=== PATIENT | male | born 1970 | race Two or more races ===

== ENCOUNTER 2016-05-19 16:28 | Emergency (ER) | payer BC, OTHER ==
[~2016-05-19] VITALS: Ht 167.6 cm; Wt 85.7 kg
[2016-05-19 16:43] VITALS: BP 142/78
== END 2016-05-19 20:03 | disposition home or self-care (01) ==
LOC: ER 16:31
DX: G44.009 Cluster headache syndrome, unspecified, not intractable (principal)
CPT/HCPCS: 70450

== ENCOUNTER 2017-08-03 17:53 | Emergency (ER) | payer SELFPAY ==
[~2017-08-03] VITALS: Ht 170.2 cm; Wt 90.7 kg
[2017-08-03 17:59] VITALS: BP 141/96
[2017-08-03] MEDS ORDERED: HYDROcodone-ACET 10/325MG TAB PO ONE (23:30)
[2017-08-03] MEDS ORDERED: IBUPROFEN 800 MG TAB PO ONE ×2 (23:30→23:31)
[2017-08-03] MEDS ORDERED: HYDROcodone-ACET 10/325MG TAB ONE (23:31)
== END 2017-08-03 23:43 | disposition home or self-care (01) ==
LOC: ER 18:00
DX: S92.355A Nondisplaced fracture of fifth metatarsal bone, left foot, initial encounter for closed fracture (principal); W01.0XXA Fall on same level from slipping, tripping and stumbling without subsequent striking against object, initial encounter; Y93.89 Activity, other specified; Y92.89 Other specified places as the place of occurrence of the external cause; Y99.8 Other external cause status
CPT/HCPCS: 73630

== ENCOUNTER 2021-07-14 02:39 | Emergency (ER) | payer SELFPAY ==
[~2021-07-14] VITALS: Ht 167.6 cm; Wt 90.7 kg
[2021-07-14] MEDS ORDERED: SODIUM CHLORIDE 0.9% 1,000 ML IV ONE ×2 (03:00→08:00)
[2021-07-14] MEDS ORDERED: KETOROLAC TROMETH 30 MG/ML 1ML VIAL IV ONE (03:00)
[2021-07-14 04:42] LABS: Urine Bacteria NONE SEEN /hpf (None Seen); Urine Blood Negative /uL (Negative); Urine WBC 2 /hpf (0 - 3)
[2021-07-14 04:49] LABS: Basophils # (auto) 0 10 ^3/uL (0-0.2); Basophils % (auto) 0.4 % (0.0-2.0); Eosinophils # (auto) 0 10 ^3/uL (0-0.8); Hematocrit 43.8 % (41.0-53.0); Hemoglobin 15.8 g/dL (13.5-17.5); Lymphocytes # (auto) 0.6 10 ^3/uL (0.4-5.4); Lymphocytes % (auto) 6.4 % (10.0-50.0); Mean Corpuscular Hemoglobin 32.3 pg (28.0-32.0); Mean Corpuscular Hgb Conc. 35.9 g/dL (32.0-36.0); Mean Corpuscular Volume 89.9 fL (80.0-100.0); Monocytes # (auto) 0.3 10 ^3/uL (0-1.3); Neutrophils # (auto) 8.8 10 ^3/uL (1.6-8.6); Neutrophils % (auto) 90.2 % (37.0-80.0); Red Blood Cells 4.87 10^6/uL (4.5-5.90); Red Cell Distribution Width 12.6 % (11.8-14.3); White Blood Cell 9.8 10^3/uL (4.4-10.8)
[2021-07-14 05:07] LABS: Calcium 8.2 mg/dL (8.5-10.1); Potassium 4.3 mmol/L (3.5-5.1)
[2021-07-14 05:12] LABS: Bilirubin, Total 0.5 mg/dL (0.2-1.0); Total Protein 6.9 g/dL (6.4-8.2)
[2021-07-14 08:47] VITALS: BP 122/65
== END 2021-07-14 08:50 | disposition home or self-care (01) ==
LOC: ER 02:39
DX: R10.9 Unspecified abdominal pain (principal); R11.2 Nausea with vomiting, unspecified
CPT/HCPCS: 36415; 74176; 80053; 81001; 85025; 93005; 96361; 96374; 99285; J1885; J7030